=== PATIENT | male | born 1945 | race Caucasian/White ===

== ENCOUNTER 2023-10-29 08:49 | Emergency (ER) | payer MEDICARE, BC ==
[2023-10-29 08:49] VITALS: BP 134/109; PULSE 0
[~2023-10-29 08:49] MED LIST: TIMOPTIC OCUDOSE0.5% OP
[2023-10-29] MEDS ORDERED: EPINEPHrine 1 MG/10 ML (1:10,000) SYRINGE IV ONE (08:54)
--- NOTE | 2023-10-30 09:25 | NUR ---
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 Family was supportive of each other and had a daughter on speaker phone when Dr Rodriges was speaking with family. Worker gave patient's wedding ring to the spouse and she confirmed that it was his. Worker offered spiritual assistance and spouse stated that Holger was the associate paster at their [employer] and that Holger had contacted [employer] and he was en route. Worker collaborated with nursing regarding the above information.
== END 2023-10-29 17:50 | disposition expired ==
LOC: COL.ER 08:49 → EDBD 08:50 → COL.ER 08:50
DX: I46.9 Cardiac arrest, cause unspecified (principal)
CPT/HCPCS: J0171